=== PATIENT | male | born 1965 | race Caucasian/White ===

== ENCOUNTER 2018-12-27 09:58 | Emergency (ER) | payer MEDICARE, MEDICAID ==
[~2018-12-27] VITALS: Ht 180.3 cm; Wt 103.0 kg
[2018-12-27 10:04] VITALS: BP 115/77
--- NOTE | 2018-12-27 10:25 | NUR ---
C/O BILAT LOWER BACK PAIN RADIATING DOWN BILAT LEGS 01/16 AND SHARPS X1 DAY. PER PT "I SLIPPED AND FELL AND LANDED ON MY BUTT YESTERDAY." HE STATES HE HAS HAD SURGERY ON HIS BACK 8 TIMES, AND HE WANTS TO MAKE SURE NOTHING IS WRONG. PT AMBULATES WITH STEADY GAIT. NO OBVIOUS DEFORMITY NOTED. DENIES NUMBNESS/TINGLING. CMS INTACT. BED IN LOW POSITON, SIDE RAIL UP X1
--- NOTE | 2018-12-27 10:53 | NUR ---
Dr. Jackson is evaluating the patient at bedside.
[2018-12-27] MEDS ORDERED: KETOROLAC 60 MG/2 ML VIAL IM ONE (11:05)
[2018-12-27] MEDS ORDERED: LORazepam 2 MG/ML VIAL IM ONE (11:05)
--- NOTE | 2018-12-27 11:25 | NUR ---
Patient taken to CT scan via wheelchair by tech.
--- NOTE | 2018-12-27 11:45 | NUR ---
PT RETURNED FROM CT
[2018-12-27 13:23] VITALS: BP 139/85
--- NOTE | 2018-12-27 13:23 | NUR ---
Patient discharged with v/s stable. Written and verbal after care instructions given and explained. Patient alert, oriented and verbalized understanding of instructions. Ambulatory with steady gait. All questions addressed prior to discharge. ID band removed. Patient advised to follow up with PMD. Rx of baclofen given. Patient educated on indication of medication including possible reaction and side effects. Opportunity to ask questions provided and answered.
== END 2018-12-27 13:22 | disposition home or self-care (01) ==
LOC: MED 09:58
DX: M54.5 Low back pain (principal); G89.29 Other chronic pain; F41.9 Anxiety disorder, unspecified; J44.9 Chronic obstructive pulmonary disease, unspecified; E11.9 Type 2 diabetes mellitus without complications; I10 Essential (primary) hypertension; F32.9 Major depressive disorder, single episode, unspecified; Z76.0 Encounter for issue of repeat prescription; Z98.890 Other specified postprocedural states; Z88.5 Allergy status to narcotic agent
CPT/HCPCS: 72131; 82948; 96372; 99284; J1885; J2060